=== PATIENT | male | born 1965 | race Hispanic/Latino ===

== ENCOUNTER 2017-05-23 08:46 | Emergency (ER) | payer OTHER, BC ==
[~2017-05-23] VITALS: Ht 177.8 cm; Wt 87.8 kg
[2017-05-23] MEDS ORDERED: TYLENOL WITH C1 EACH PO (10:19)
[2017-05-23] MEDS ORDERED: FLEXERIL10 MG PO (10:19)
[2017-05-23 11:39] VITALS: BP 148/96
== END 2017-05-23 11:40 | disposition home or self-care (01) ==
LOC: EME 08:46
DX: S30.0XXA Contusion of lower back and pelvis, initial encounter (principal); S40.011A Contusion of right shoulder, initial encounter; M54.2 Cervicalgia; V43.52XA Car driver injured in collision with other type car in traffic accident, initial encounter; Y92.410 Unspecified street and highway as the place of occurrence of the external cause
CPT/HCPCS: 72040; 72100; 73030; 99281; 99283

== ENCOUNTER 2017-11-23 17:27 | Emergency (ER) | payer BC ==
[~2017-11-23] VITALS: Ht 175.3 cm; Wt 85.5 kg
[~2017-11-23 17:27] MED LIST: FLEXERIL10 MG PO; TYLENOL WITH C1 EACH PO
[2017-11-23 18:11] LABS: HEMATOCRIT 38.6 % (38.0-50.0); HEMOGLOBIN 13.1 G/DL (12.5-16.6); MCH 29.3 PG (29.0-34.0); MCHC 33.9 G/DL (30.0-36.0); MCV 86.4 FL (86-99); PLATELET COUNT 304 K/uL (156-360); RBC DIS.WIDTH-CV 11.9 % (11.8-14.6); RBC DIS.WIDTH-SD 37.4 % (39-53); RED BLOOD COUNT 4.47 M/uL (4.00-5.50)
[2017-11-23 18:19] LABS: CHLORIDE 105 mEq/L (99-109); SODIUM 143 mEq/L (136-147)
[2017-11-23 18:21] LABS: GLUCOSE 66 mg/dL (70-99)
[2017-11-23 18:25] LABS: GFR ESTIMATE (CALCULATED) > 59 mL/min/ (58.99-99999)
[2017-11-23 18:26] LABS: UREA NITROGEN (BUN) 12 mg/dL (9-23)
[2017-11-23 18:31] LABS: TROP-I INTERPRETATION NEGATIVE; TROPONIN-I < 0.01 ng/mL (0.0-0.30)
[2017-11-23 21:07] VITALS: BP 124/89
== END 2017-11-23 21:09 | disposition home or self-care (01) ==
LOC: EME 17:27
DX: R07.9 Chest pain, unspecified (principal); R91.8 Other nonspecific abnormal finding of lung field; Z72.0 Tobacco use
CPT/HCPCS: 71046; 71275; 80048; 84484; 85027; 93005; 99281; 99285